=== PATIENT | male | born 1970 | race Caucasian/White ===

== ENCOUNTER → 2022-07-22 | Outpatient (CLI) | payer OTHER ==
[~2022-07-22] VITALS: Ht 182.9 cm; Wt 80.2 kg
[~2022-07-22] MED LIST: CLARITIN 1010 MG/TAB PO; MULTI VITAMINS1 TAB PO; NORCO 325 MG-51 TAB PO; PRILOSEC 20MG20 MG PO; PRILOSEC10 MG PO
[2022-07-22 08:56] VITALS: BP 120/74; PULSE 65; TEMP 97.3
--- NOTE | 2022-07-22 10:15 | NUR ---
PT DID NOT REQUIRE ANESTHESIA.
== END ==
LOC: COL.RAD 08:39
DX: M47.812 Spondylosis without myelopathy or radiculopathy, cervical region (principal); M48.02 Spinal stenosis, cervical region; M19.012 Primary osteoarthritis, left shoulder
CPT/HCPCS: J2704; J3010